=== PATIENT | female | born 2000 | race Caucasian/White ===

== ENCOUNTER 2022-08-25 10:14 | Outpatient (CLI) | payer BC | END 2022-08-25 10:15 | disposition home or self-care (01) | LOC: CSHCP 10:14 | PROVIDERS: ATTEND Internal Medicine Hematology & Oncology | DX: C81.12 Nodular sclerosis Hodgkin lymphoma, intrathoracic lymph nodes (principal); Z79.899 Other long term (current) drug therapy; J44.9 Chronic obstructive pulmonary disease, unspecified | CPT/HCPCS: 93306; 94010; 94726; 94729; 94760 ==

== ENCOUNTER 2023-09-03 15:27 | Outpatient (CLI) | payer BC | END 2023-09-03 15:28 | disposition home or self-care (01) | LOC: CSHCT 15:27 | PROVIDERS: ATTEND Internal Medicine Hematology & Oncology | DX: C81.90 Hodgkin lymphoma, unspecified, unspecified site (principal); R59.1 Generalized enlarged lymph nodes | CPT/HCPCS: 71260; 74177 ==